=== PATIENT | female | born 1955 | race Caucasian/White ===

== ENCOUNTER 2018-08-31 21:40 | Emergency (ER) | payer MEDICARE, OTHER ==
[~2018-08-31] VITALS: Ht 157.5 cm; Wt 101.4 kg
[2018-08-31 21:43] VITALS: Ht 157.5 cm; Wt 101.4 kg
[2018-08-31] MEDS ORDERED: ONDANSETRON (ODT) 4 MG TAB ODT STA (22:10)
[2018-08-31] MEDS ORDERED: ACETAMINOPHEN 325 MG TAB PO ONE (22:30)
[2018-08-31] MEDS ORDERED: ACET-141 PO (23:40)
--- NOTE | 2018-08-31 23:40 | ERD ---
ER Documentation Chief Complaint Chief Complaint BACK PAIN X'S 3 days HPI 63-year-old female with history of hypertension and gastritis presents for back pain x3 days. Patient has chronic low back pain for many years however she states that the pain is been worsening for the past 3 days. The pain is noted to be 9 out of 10, scribed as a dull sensation, nonradiating. Pain is worse with sitting, improved with lying down. She has associated nausea. Denies fevers or chills. Denies chest pain or shortness of breath. Denies abdominal pain, vomiting. Denies dysuria. No other modifying factors noted, no treatments tried at home. Denies history of recent back procedure, denies history of recent infection, no history of weight loss or cancer. ROS All systems reviewed and are negative except as per history of present illness. Medications Home Meds Active Scripts Acetaminophen* (Acetaminophen*) 500 MG Extra Strength Tablet, 500 MG PO Q4H PRN for PAIN AND OR ELEVATED TEMP, #30 TAB Prov:RUBIA TIDWELL DO 08/31/18 Allergies Allergies: Coded Allergies: No Known Allergy (Unverified , 08/31/18) PMhx/Soc History of Surgery: Yes (KNEE REPLACEMENT) Hx Cardiac Disorders: Yes (HTN) Hx Miscellaneous Medical Probl: Yes (HYPOTHYROIDISM ) Hx Alcohol Use: No Hx Substance Use: No Hx Tobacco Use: No Smoking Status: Never smoker FmHx Family History: No coronary disease Physical Exam Vitals Vital Signs Date Temp Pulse Resp B/P (MAP) Pulse Ox O2 O2 Flow FiO2 Time Delivery Rate 09/01/18 98.0 63 18 117/58 98 00:05 (77) 08/31/18 97.1 70 18 144/68 94 21:43 (93) Physical Exam Const: No acute distress Neck: Full range of motion. No meningismus. no midline tenderness Resp: Clear to auscultation bilaterally Cardio: Regular rate and rhythm, no murmurs, bilateral radial and dorsalis pedis pulses intact and equal Abd: Soft, non tender, non distended. Normal bowel sounds, no abdominal bruit noted Skin: No petechiae or rashes Back: no point tenderness, tenderness palpation of the paravertebral muscles of the lumbar spine Ext: No cyanosis, or edema, 5/5 muscle strength bilateral upper and lower extremities Neur: Awake and alert, bilateral upper and lower extremity sensation intact Psych: Normal Mood and Affect Results 24 hrs Laboratory Tests Test 08/31/18 22:07 Urine Color YELLOW Urine Clarity CLEAR Urine pH 5.0 Urine Specific [place] 1.022 Urine Ketones NEGATIVE mg/dL Urine Nitrite NEGATIVE mg/dL Urine Bilirubin NEGATIVE mg/dL Urine Urobilinogen NEGATIVE mg/dL Urine Leukocyte Esterase NEGATIVE Opal/ul Urine Microscopic RBC 1 /HPF Urine Microscopic WBC 5 /HPF Urine Squamous Epithelial Cells FEW /HPF Urine Bacteria FEW /HPF Urine Hemoglobin 1+ mg/dL Urine Glucose 3+ mg/dL Urine Total Protein NEGATIVE mg/dl Current Medications Medications Dose Sig/Isidoro Start Time Status Last (Trade) Ordered Route PRN Stop Time Admin Dose Reason Admin 650 mg ONCE ONCE 08/31/18 DC 08/31/18 Acetaminophen PO 22:30 22:15 (Tylenol 08/31/18 22:31 Tab) Ondansetron 4 mg ONCE STAT 08/31/18 DC 08/31/18 HCl (Zofran ODT 22:10 22:15 Odt) 08/31/18 22:11 Procedures/MDM Medical Decision Making: Differential diagnosis includes but not limited to muscle strain, ligamentous sprain, epidural abscess, osteomyelitis, osteoarthritis, herniated disc, compression fracture, aortic aneurysm, kidney stone, pyelonephritis, pancreatitis. Patient appeared well on physical examination. Nontoxic appearing. Patient appeared well on physical examination. Nontoxic appearing. No recent back procedure, therefore low suspicion for epidural abscess No recent infection, therefore low suspicion for osteomyelitis No trauma, therefore low suspicion for fracture No chest pain, abdominal pain and no pulse deficits noted, therefore low suspicion for aortic dissection or pancreatitis No flank pain or fever to suggest pyelonephritis or kidney stone Imaging: X-ray LS-Spine 3V Interpreted by me: Bones: No fracture, or lytic lesions Joints: No dislocation Foreign body: None There is degenerative disc disease noted in the lumbar spine diffusely ED course: Patient given Zofran in ER for complaint of nausea. Symptoms improved with treatment. Patient advised regarding conservative treatment for her low back pain. Advised follow-up with primary care physician for possible physical therapy if the pain does not improve. Prescription(s): Patient given prescription for supportive medication(s). Patient advised to follow up with PCP in 1-2 days. Patient advised to return to ED for new or worsening symptoms. Patient stable on discharge from the ED. Disclaimer: Inadvertent spelling and grammatical errors are likely due to EHR/dictation software use and do not reflect on the overall quality of patient care. Also, please note that the electronic time recorded on this note does not necessarily reflect the actual time of the patient encounter. Departure Diagnosis: Primary Impression: Back pain Back pain location: low back pain Chronicity: chronic Back pain laterality: bilateral Sciatica presence: without sciatica Qualified Codes: M54.5 - Low back pain; G89.29 - Other chronic pain Condition: Fair Patient Instructions: Back Pain (Acute Or Chronic) Referrals: [facility] YOU HAVE RECEIVED A MEDICAL SCREENING EXAM AND THE RESULTS INDICATE THAT YOU DO NOT HAVE A CONDITION THAT REQUIRES URGENT TREATMENT IN THE EMERGENCY DEPARTMENT. FURTHER EVALUATION AND TREATMENT OF YOUR CONDITION CAN WAIT UNTIL YOU ARE SEEN I N YOUR DOCTORS OFFICE WITHIN THE NEXT 1-2 DAYS. IT IS YOUR RESPONSIBILITY TO MAKE AN APPOINTMENT FOR FOLOW-UP CARE. IF YOU HAVE A PRIMARY DOCTOR --you should call your primary doctor and schedule an appointment IF YOU DO NOT HAVE A PRIMARY DOCTOR YOU CAN CALL OUR PHYSICIAN REFERRAL HOTLINE AT IF YOU CAN NOT AFFORD TO SEE A PHYSICIAN YOU CAN CHOSE FROM THE FOLLOWING [facility] [address] [facility] [facility] [address] [facility]. [facility] [address] [facility] [facility] [address] [facility]. [facility] [address] [facility]. [facility]. [address] Additional Instructions: Llame al doctor MAANA y jose kely JESSE PARA DENTRO DE 1-2 PLEITEZ.Dgale a la secretaria que nosotros le instruimos hacer esta jesse.Avise o llame si powell condicin se empeora antes de la jesse. Regresa aqui si peor o no mejor. RUBIA TIDWELL DO Aug 31, 2018 23:40
[2018-09-01 00:05] VITALS: BP 117/58; PULSE 63; RESP 18
== END 2018-09-01 00:06 | disposition home or self-care (01) ==
LOC: FTE 21:40
DX: M54.5 Low back pain (principal); I10 Essential (primary) hypertension; E03.9 Hypothyroidism, unspecified; Z96.659 Presence of unspecified artificial knee joint
CPT/HCPCS: 72100; 81001